=== PATIENT | female | born 1935 | race Two or more races ===

== ENCOUNTER 2021-03-04 07:58 | Outpatient (CLI) | payer OTHER | END 2021-03-04 08:10 | disposition home or self-care (01) | LOC: RAD 07:58 | PROVIDERS: ATTEND Internal Medicine Gastroenterology | DX: K57.90 Diverticulosis of intestine, part unspecified, without perforation or abscess without bleeding (principal); R10.13 Epigastric pain; K22.89 Other specified disease of esophagus; K75.81 Nonalcoholic steatohepatitis (NASH); M54.89 Other dorsalgia; R74.8 Abnormal levels of other serum enzymes ==